=== PATIENT | male | born 2000 ===

== ENCOUNTER 2018-01-08 04:39 | Emergency (ER) | payer OTHER ==
[~2018-01-08] VITALS: Ht 170.2 cm; Wt 59.9 kg
[~2018-01-08 04:39] MED LIST: DICY10CA; OMEPRAZOLE20 MG
== END 2018-01-08 19:16 | disposition designated cancer center or children's hospital (05) ==
LOC: ER 04:39 → CPU-OBS 04:41 → ER 04:41
DX: R07.89 Other chest pain (principal); F14.188 Cocaine abuse with other cocaine-induced disorder; F19.20 Other psychoactive substance dependence, uncomplicated
CPT/HCPCS: G0378; G0379; 71250; 93005

== ENCOUNTER 2022-05-27 15:09 | Emergency (ER) | payer OTHER ==
[~2022-05-27] VITALS: Ht 167.6 cm; Wt 72.6 kg
[2022-05-27] MEDS ORDERED: DEPAKOTE ER500 MG PO (15:22)
[2022-05-27] MEDS ORDERED: ZYPREXA15 MG PO (15:24)
== END 2022-05-27 19:57 | disposition home or self-care (01) ==
LOC: ER 15:09
DX: F19.20 Other psychoactive substance dependence, uncomplicated (principal)